=== PATIENT | female | born 1945 | race Two or more races ===

== ENCOUNTER 2020-05-11 21:49 | Inpatient (IN) | payer MEDICARE, BC ==
[~2020-05-11] VITALS: Ht 162.6 cm; Wt 47.6 kg
[2020-05-12 00:21] LABS: Basophils # (auto) 0 10 ^3/uL (0-0.2); Basophils % (auto) 0.4 % (0.0-2.0); Eosinophils # (auto) 0 10 ^3/uL (0-0.8); Hematocrit 34.5 % (36.0-46.0); Hemoglobin 11.5 g/dL (12.2-16.2); Lymphocytes # (auto) 0.8 10 ^3/uL (0.4-5.4); Lymphocytes % (auto) 21.1 % (10.0-50.0); Mean Corpuscular Hemoglobin 28.9 pg (28.0-32.0); Mean Corpuscular Hgb Conc. 33.4 g/dL (32.0-36.0); Mean Corpuscular Volume 86.5 fL (80.0-100.0); Monocytes # (auto) 0.5 10 ^3/uL (0-1.3); Monocytes % (auto) 13.3 % (0.0-12.0); Neutrophils # (auto) 2.6 10 ^3/uL (1.6-8.6); Neutrophils % (auto) 65.2 % (37.0-80.0); Nucleated Red Blood Cells % 0.1 %; Red Blood Cells 3.99 10^6/uL (4.0-5.20); Red Cell Distribution Width 14.5 % (11.8-14.3); White Blood Cell 3.9 10^3/uL (4.4-10.8)
[2020-05-12 00:39] LABS: INR 1.11 (0.9-1.15)
[2020-05-12 00:51] LABS: Albumin 2.8 g/dL (3.4-5.0); BUN/Creatinine Ratio 22.9; Calcium 7.2 mg/dL (8.5-10.1); Potassium 4.1 mmol/L (3.5-5.1)
[2020-05-12 00:56] LABS: Bilirubin, Total 0.3 mg/dL (0.2-1.0); Total Protein 6.2 g/dL (6.4-8.2)
[2020-05-12] MEDS ORDERED: CALCIUM ACETATE 667 MG CAP PO ONE (01:15)
[2020-05-12] MEDS ORDERED: CALCIUM GLUC 4.65meq/50ml D5AE 50 ML IV ONE (01:15)
[2020-05-12] MEDS ORDERED: IOHEXOL 350 MG/ML 100ML IJ ONE (01:25)
[2020-05-12] MEDS ORDERED: ACETAMINOPHEN 325 MG TAB PO ONE (03:15)
[2020-05-12] MEDS ORDERED: HYDROcodone-ACET 5/325MG TAB PO PRN (06:00)
[2020-05-12] MEDS ORDERED: MORPHINE SULFATE INJECTION 2 MG/ML SYRG IV PRN (06:00)
[2020-05-12] MEDS ORDERED: DOCUSATE SOD 100 MG CAP PO PRN (06:00)
[2020-05-12] MEDS ORDERED: SODIUM CHLORIDE 0.9% 1,000 ML IV SCH (06:00)
[2020-05-12] MEDS ORDERED: ONDANSETRON HCL 4 MG/2 ML VIAL IV PRN (06:00)
[2020-05-12] MEDS ORDERED: ACETAMINOPHEN 325 MG TAB PO PRN (06:00)
[2020-05-12] MEDS ORDERED: NITROGLYCERIN 0.4 MG SL TAB SL PRN (06:00)
[2020-05-12 06:46] LABS: Basophils # (auto) 0 10 ^3/uL (0-0.2); Basophils % (auto) 0.5 % (0.0-2.0); Eosinophils # (auto) 0 10 ^3/uL (0-0.8); Hemoglobin 11.5 g/dL (12.2-16.2); Lymphocytes % (auto) 34.9 % (10.0-50.0); Mean Corpuscular Hemoglobin 28.5 pg (28.0-32.0); Mean Corpuscular Hgb Conc. 32.8 g/dL (32.0-36.0); Mean Corpuscular Volume 86.9 fL (80.0-100.0); Monocytes # (auto) 0.4 10 ^3/uL (0-1.3); Monocytes % (auto) 13.2 % (0.0-12.0); Neutrophils # (auto) 1.5 10 ^3/uL (1.6-8.6); Neutrophils % (auto) 51.4 % (37.0-80.0); Nucleated Red Blood Cells % 0.1 %; Red Blood Cells 4.03 10^6/uL (4.0-5.20); Red Cell Distribution Width 14.2 % (11.8-14.3); White Blood Cell 2.9 10^3/uL (4.4-10.8)
[2020-05-12 07:07] LABS: Albumin 2.6 g/dL (3.4-5.0); Potassium 4.3 mmol/L (3.5-5.1)
[2020-05-12 07:12] LABS: BUN/Creatinine Ratio 28.2; Bilirubin, Total 0.3 mg/dL (0.2-1.0); Calcium 7.9 mg/dL (8.5-10.1); Total Protein 5.9 g/dL (6.4-8.2)
[2020-05-12] MEDS: ASCORBIC ACID 500 MG TAB PO SCH ×2 (10:00→11:19)
[2020-05-12] MEDS ORDERED: MULTIPLE VITAMIN TAB PO SCH (10:00)
[2020-05-12] MEDS ORDERED: ENOXAPARIN SOD 40 MG/0.4 ML SYRINGE SC SCH (10:00)
[2020-05-12] MEDS ORDERED: ZINC SULFATE 220mg CAP or TAB PO SCH (10:00)
[2020-05-12 11:20] VITALS: BP 98/71
== END 2020-05-12 11:30 | disposition home health service (06) | DRG 177 ==
LOC: ER 21:49 → EDBD 21:49 → TELE 21:50
PROVIDERS: ADMIT Nurse Practitioner Family; ATTEND Internal Medicine
DX: U07.1 COVID-19 (principal); J12.82 Pneumonia due to coronavirus disease 2019; G93.40 Encephalopathy, unspecified; E87.1 Hypo-osmolality and hyponatremia; E83.51 Hypocalcemia; I10 Essential (primary) hypertension; R59.0 Localized enlarged lymph nodes
CPT/HCPCS: 36415; 70450; 71045; 71275; 80053; 80320; 82140; 83605; 83735; 84443; 84484; 85025; 85379; 85610; 85730; 87426; 93005; 96361; 96365; 96372; G0378; J0610